=== PATIENT | male | born 1965 | race Caucasian/White ===

== ENCOUNTER 2019-01-01 12:52 | Inpatient (IN) | payer BC, SELFPAY ==
[2019-01-01 12:56] VITALS: BP 154/88; PULSE 75; RESP 18; TEMP 36.5; O2SAT 98
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
[2019-01-01 14:07] LABS: Abs Immature Grans 0.04 k/cumm (0.0-0.09); Absolute Basophil Count 0.03 k/cumm (0.0-0.2); Absolute Eosinophil Count 0.03 k/cumm (0.0-0.7); Absolute Lymphocyte Count 1.17 k/cumm (1.2-3.4); Absolute Monocyte Count 0.91 k/cumm (0.11-0.7); Absolute Neutrophil Count 10.52 k/cumm (1.2-6.7); Basophils % 0.2; Eosinophils % 0.2; HCT 44.8 % (40.0-50.0); HGB 15.6 g/dL (13.5-17.5); Immature Grans % 0.3; Lymphocytes % 9.2; Mean Corp. HGB Concentration 34.8 g/dL (32.0-36.0); Mean Corpuscular Hemoglobin 31.8 pg (27.0-33.0); Mean Corpuscular Volume 91.4 fL (80-95); Mean Platelet Volume 10.6 fL (8.0-11.0); Monocytes % 7.2; Neutrophils % 82.9; Platelet Count 210 x1000/uL (130-400); RBC Distribution Width 13.1 % (11.8-14.1); White Blood Cell Count 12.69 k/cumm (4.4-10.8)
[2019-01-01] MEDS: Normal Saline 1,000 ML 1000 ML IV (14:07)
[2019-01-01] MEDS: Ketorolac 30 MG/ML VIAL IVP (14:07)
[2019-01-01 14:16] LABS: Lipase 211 U/L (73-393)
[2019-01-01 14:25] LABS: ALT 56 U/L (12-78); AST 36 U/L (15-37); Albumin 3.8 g/dL (3.4-5.0); Alkaline Phosphatase 90 U/L (46-116); Anion Gap 8.7 mmol/L (3-11); BUN 16 mg/dL (7-18); Bilirubin, Total 0.3 mg/dL (0.2-1.0); CO2 26.3 mmol/L (21.0-32.0); CREATININE 1.21 mg/dL (0.70-1.30); Calcium 9.4 mg/dL (8.5-10.1); Chloride 106 mmol/L (98-107); Glucose 112 mg/dL (70-100); Magnesium 1.9 mg/dL (1.8-2.4); Potassium 3.9 mmol/L (3.5-5.1); Sodium 141 mmol/L (136-145); Total Protein 7.6 g/dL (6.4-8.2); Troponin I < 0.05 ng/mL (0.00-0.06)
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
[2019-01-01] MEDS: Omnipaque 350 MG/ML 100 ML BTL IJ (15:00)
--- NOTE | 2019-01-01 15:16 | DI.VRAD_ITS ---
Addendum created by Diego Hernandez MD on 01/01/2019 3:43:59 PM EDT An acute displaced left rib fracture is present. Acute nondisplaced fractures are also identified involving the right first rib. Additional nondisplaced fractures are identified involving the left first and second ribs along with the left third through fifth ribs. These findings were conveyed to stacy Pak at the time of interpretation (01/01/2019 3:43 PM EDT). Initial report created on 01/01/2019 3:16:06 PM EDT EXAM: CT Chest With Contrast EXAM DATE/TIME: 01/01/2019 1:52 PM CLINICAL HISTORY: 53 years old, male; Localized; Left-sided chest pain; Patient HX: Left chest and abdominal pain, also patient sts left shoulder pain. TECHNIQUE: Imaging protocol: Axial computed tomography images of the chest with intravenous contrast. Coronal and sagittal reformatted images were created and reviewed. Radiation optimization: All CT scans at this facility use at least one of these dose optimization techniques: automated exposure control; mA and/or kV adjustment per patient size (includes targeted exams where dose is matched to clinical indication); or iterative reconstruction. COMPARISON: No relevant prior studies available. FINDINGS: Lungs: Mild dependent left basilar airspace disease. Pleural space: Trace left pleural fluid collection without pneumothorax. Heart: No cardiomegaly or significant pericardial effusion. Aorta: Normal caliber of the thoracic aorta. Lymph nodes: No pathologically enlarged lymph nodes. Bones/joints: Acute fractures involving the left third, fourth, and fifth ribs. Schmorl's nodes and marginal osteophytes. Soft tissues: Unremarkable. IMPRESSION: 1. Acute fractures involving the left third, fourth, and fifth ribs. 2. Additional findings as described above. EXAM: CT Abdomen and Pelvis With Contrast EXAM DATE/TIME: 01/01/2019 1:52 PM CLINICAL HISTORY: 53 years old, male; Localized; Left-sided chest pain; Patient HX: Left chest and abdominal pain, also patient sts left shoulder pain. TECHNIQUE: Imaging protocol: Axial computed tomography images of the abdomen and pelvis with intravenous contrast. Coronal and sagittal reformatted images were created and reviewed. Radiation optimization: All CT scans at this facility use at least one of these dose optimization techniques: automated exposure control; mA and/or kV adjustment per patient size (includes targeted exams where dose is matched to clinical indication); or iterative reconstruction. Contrast material: OMNIPAQUE 350;Contrast volume: 100 ml;Contrast route: IV; COMPARISON: No relevant prior studies available. FINDINGS: Liver: Fatty infiltration of the liver. Gallbladder and bile ducts: Unremarkable gallbladder. No biliary ductal dilatation. Pancreas: No pancreatic mass or ductal dilatation. Spleen: No splenomegaly. 14 mm accessory spleen. Adrenals: Subtle left adrenal nodularity. Kidneys and ureters: Normal renal morphology. No significant hydronephrosis. Stomach and bowel: Mild small bowel dilatation without a transition zone. Diverticula without pericolonic inflammation. Appendix: Normal appendix. Intraperitoneal space: No free fluid. Vasculature: Normal caliber of the abdominal aorta. Lymph nodes: No pathologically enlarged lymph nodes. Bladder: Minimal bladder wall thickening. Reproductive: Calcification in the enlarged prostate which produces extrinsic compression of the bladder base. Punctate scrotal calcifications and hydroceles. Bones/joints: Transitional vertebra at the lumbosacral junction. Marginal osteophytes. Soft tissues: Unremarkable. IMPRESSION: 1. No acute visceral or bony injury in the abdomen or pelvis. 2. Nontraumatic findings as described above. Dictated and Authenticated by: Diego Hernandez MD. Ordering:NANCY Reese MD
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
[2019-01-01 17:42] VITALS: BP 135/92; PULSE 74; RESP 16; TEMP 37.1; O2SAT 97
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
[2019-01-01 18:24] VITALS: PULSE 74
[2019-01-01] MEDS: Bupivacaine 0.25% Pres-Free 30 ML VIAL (19:30)
[2019-01-01] MEDS: Bupivacaine LIPOSOME/PF 133 MG/10 ML VIAL IJ (19:30)
[2019-01-01 20:10] VITALS: BP 151/95; PULSE 79; RESP 17; TEMP 37.4; O2SAT 96
[2019-01-01 23:30] VITALS: PULSE 70
[2019-01-01 23:55] VITALS: BP 142/92; PULSE 68; RESP 17; TEMP 36.9; O2SAT 97
[2019-01-02] MEDS: Ketorolac 30 MG/ML VIAL IVP ×2 (01:41→08:00)
[2019-01-02] MEDS: Normal Saline Flush 10 ML SYR IVP ×2 (01:42→08:00)
[2019-01-02 02:52] VITALS: RESP 17; O2SAT 97
[2019-01-02 03:40] VITALS: BP 131/77; PULSE 74; RESP 18; TEMP 36.7; O2SAT 97
[2019-01-02 07:35] VITALS: RESP 16; O2SAT 97
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
[2019-01-02] MEDS: Acetaminophen 325 MG TAB 650 MG PO (07:58)
[2019-01-02 08:02] VITALS: BP 154/91; PULSE 72; RESP 16; TEMP 36.8; O2SAT 97
[2019-01-02 08:56] VITALS: PULSE 73
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
[2019-01-02 11:16] VITALS: BP 154/91; PULSE 72; RESP 17; TEMP 37; O2SAT 98
== END 2019-01-02 12:18 | disposition home or self-care (01) | DRG 185 ==
LOC: ER 17:33 → MS 17:52
PROVIDERS: Admitting Provider Surgery; Emergency Provider Physician Assistant; Visit Provider Surgery
DX: S22.42XA Multiple fractures of ribs, left side, initial encounter for closed fracture (principal); S22.31XA Fracture of one rib, right side, initial encounter for closed fracture; S42.002A Fracture of unspecified part of left clavicle, initial encounter for closed fracture; R07.81 Pleurodynia; M79.641 Pain in right hand; S06.0X0A Concussion without loss of consciousness, initial encounter; T14.8XXA Other injury of unspecified body region, initial encounter; V19.88XA Pedal cyclist (driver) (passenger) injured in other specified transport accidents, initial encounter; Y93.55 Activity, bike riding; N40.0 Benign prostatic hyperplasia without lower urinary tract symptoms
CPT/HCPCS: 36415; 74177; 76942; 80053; 83690; 93005; 96360; 99223; 99239; 99285; NC; 70450; 71046; 71260; 72125; 73130; 83735; 84484; 85025; 93010; J1885; J3490